=== PATIENT | male | born 1965 | race Caucasian/White ===

== ENCOUNTER 2022-05-17 14:46 | Outpatient (CLI) | payer OTHER, SELFPAY ==
--- NOTE | ~2022-05-17 | MR_ITS ---
EXAMINATION: MR knee RT wo con DATE: 05/17/2022 15:43 INDICATION: TECHNIQUE: Magnetic resonance imaging (MRI) of the knee was performed without intravenous contrast. S equences included axial PD-weighted FS FSE, coronal PD-weighted FSE and PD-weighted FS FSE, sagittal PD-weighted FSE, and sagittal T2-weighted FS FSE. COMPARISON: X-ray right knee, 12/17/2021, images only. FINDINGS: Medial compartment: Severe diffuse full-thickness cartilage loss. Severely attenuated, abnormal meniscus including displa darci flap/bucket-handle tears of both the anterior horn and posterior horn. Moderate osteophytosis. Lateral compartment: Meniscus intact. Moderate diffuse cartilage thinning. Mild osteophytosis. Patellofemoral compartment: Mild cartilage thinning and partial-thickness signal abnormality. Mild osteophytosis. Retinacula inta ct. Ligaments and tendons: The ACL, PCL, and LCL are intact. Mild chronic thickening of the MCL. The remaining flexor and extens or tendons are intact. Fluid: Moderate volume joint fluid. Large Manzano's cyst. Osseous/other: No suspicious focal or diffuse marrow signal. Multiple large ossified loose joint bodies in a posteri or joint recess. IMPRESSION: 1. Complex tears of the medial meniscus, with displaced prolapse of meniscal tissue. 2. Severe osteoarthritic changes in the medial compartment. 3. Ossified loose bodies in a posterior joint recess. Reviewed, dictated and finalized at location [facility]. [employer] IMPRESSION: 1. Complex tears of the medial meniscus, with displaced prolapse of meniscal ti ssue. 2. Severe osteoarthritic changes in the medial compartment. 3. Ossified loose bodies in a posterior joint recess.
== END 2022-05-17 14:47 | disposition home or self-care (01) ==
PROVIDERS: PCP Family Medicine; Visit Provider Orthopaedic Surgery
DX: S83.231A Complex tear of medial meniscus, current injury, right knee, initial encounter (principal); M17.11 Unilateral primary osteoarthritis, right knee; M23.41 Loose body in knee, right knee; T14.90XA Injury, unspecified, initial encounter
CPT/HCPCS: 73721

== ENCOUNTER 2022-06-04 07:36 | Outpatient (CLI) | payer OTHER, SELFPAY ==
--- NOTE | 2022-06-04 08:32 | ECG_ITS ---
Measurements Intervals Miles Rate: 64 P: 56 DC: 171 QRS: 17 QRSD: 113 T: 5 QT: 380 QTc: 394 Interpretive Statements SINUS RHYTHM NONSPECIFIC INTERVENTRICULAR CONDUCTION DELAY ABNORMAL ECG NO PREVIOUS ECG AVAILABLE FOR COMPARISON Electronically Signed On 06-04-2022 14:56:14 [facility] by Manuel Goldsmith M.D.
[2022-06-04 09:11] LABS: Basophils Absolute Auto 0.1 K/mm3 (0.0-0.1); Basophils Percent Auto 0.9 % (0.2-1.2); Eosinophils Absolute Auto 0.2 K/mm3 (0-0.3); Hematocrit 39.8 % (42.0-52.0); Hemoglobin 13.4 g/dL (14.0-18.0); Immature Granulocyte Absolute 0.03 K/mm3 (0.00-0.031); Immature Granulocyte Percent A 0.5 % (0-0.5); Lymphocytes Absolute Auto 1.91 K/mm3 (0.9-3.2); Lymphocytes Percent Auto 29.1 % (18.3-44.2); Mean Corpuscular HGB Conc 33.7 g/dl (32-36); Mean Corpuscular Hemoglobin 29.8 pg (26-34); Mean Corpuscular Volume 88.6 fl (80-100); Mean Platelet Volume 10.7 fl (7.4-10.4); Monocytes Absolute Auto 0.5 K/mm3 (0.1-0.6); Monocytes Percent Auto 7.3 % (2.6-8.5); Neutrophils Absolute Auto 3.9 K/mm3 (1.3-6.7); Neutrophils Percent Auto 59.2 % (45.5-73.1); Platelet Count Result 266 k/mm3 (150-375); Red Blood Count 4.49 M/mm3 (4.6-6.20); Red Cell Distribution Width 13.3 % (11.5-14.5); White Blood Count 6.6 K/mm3 (4.5-10.0)
[2022-06-04 09:19] LABS: Albumin Level 4.6 g/dL (3.5-5.1)
[2022-06-04 09:21] LABS: Urine Cotinine NEGATIVE
[2022-06-04 09:23] LABS: Anion Gap 8 mmol/L (8-16); Blood Urea Nitrogen 16 mg/dL (9-20); Calcium 8.9 mg/dL (8.4-10.2); Carbon Dioxide 29 mmol/L (22-30); Chloride 101 mmol/L (98-107); Estimated Glomerular Filt Rate > 60; Glucose 211 mg/dL (65-110); Potassium 4.8 mmol/L (3.4-5.0); Sodium 138 mmol/L (137-145)
[2022-06-04 09:24] LABS: Hemoglobin A1C 8.9 % (<5.7)
== END 2022-06-04 07:37 | disposition home or self-care (01) ==
LOC: ANHSURGERY 07:39
PROVIDERS: Anesthesiology; PCP Family Medicine; Visit Provider Orthopaedic Surgery
DX: Z01.812 Encounter for preprocedural laboratory examination (principal); Z01.810 Encounter for preprocedural cardiovascular examination; M17.11 Unilateral primary osteoarthritis, right knee; I45.9 Conduction disorder, unspecified
CPT/HCPCS: 36415; 80048; 80307; 82040; 83036; 85025; 86850; 86900; 86901; 87081; 93005